=== PATIENT | female | born 1960 | race American Indian/Alaskan Native ===

== ENCOUNTER 2017-08-10 11:44 | Emergency (ER) | payer MEDICARE ==
--- NOTE | 2017-08-10 12:14 | Emergency Department Report ---
Chief Complaint: High BP Stated Complaint: HIGH BP Time Seen by Provider: 08/10/17 12:08 - HPI History of Present Illness: PT states she feels like she is having anxiety. PT states she went to the ENT today for ear wax removal and she was sent to the ED for htn. PT states she has been taking her medication. - ROS Review of Systems: - chest pain - sob - headache - Exam Vital Signs: Vital Signs 08/10/17 08/10/17 11:50 11:52 Temperature 98 F Pulse Rate 135 H Respiratory 20 20 Rate Blood Pressure 206/104 O2 Sat by Pulse 99 Oximetry Physical Exam: obese female gcs 15 no focal weakness tachycardic MSE screening note: Focused history and physical exam performed. Due to findings the following was ordered: ekg, labs, xr ED Disposition for MSE Condition: Stable
[2017-08-10 12:44] LABS: Hematocrit 36.7 % (30.3-42.9); Hemoglobin 11.3 gm/dl (10.1-14.3); Mean Corpuscular HGB Conc 31 % (30-34); Platelet Count 289 K/mm3 (140-440); Red Blood Count 5.98 M/mm3 (3.65-5.03); Red Cell Distribution Width 15.9 % (13.2-15.2); White Blood Count 9.1 K/mm3 (4.5-11.0)
[2017-08-10 12:45] LABS: Mean Corpuscular Hemoglobin 19 pg (28-32); Mean Corpuscular Volume 61 fl (79-97)
[2017-08-10 12:53] LABS: Alanine Aminotransferase 16 units/L (7-56); Albumin 3.9 g/dL (3.9-5); Alkaline Phosphatase 93 units/L (35-129); BUN/Creatinine Ratio 17.14; Blood Urea Nitrogen 12 mg/dL (7-17); Calcium 9.3 mg/dL (8.4-10.2); Carbon Dioxide 23 mmol/L (22-30); Glucose 117 mg/dL (65-100); Total Protein 7.7 g/dL (6.3-8.2)
[2017-08-10 12:54] LABS: Anion Gap 18 mmol/L; Chloride 101.8 mmol/L (98-107); Potassium 3.7 mmol/L (3.6-5.0); Sodium 139 mmol/L (137-145)
--- NOTE | 2017-08-10 13:25 | XRay Report ---
CHEST 2 VIEWS INDICATION: Chest pain. COMPARISON: 10/20/2011. FINDINGS: PA and lateral chest radiographs demonstrate normal cardiomediastinal silhouette. Clear lungs. Possible osteopenia. CONCLUSION: No acute disease in the chest. Thank you for the opportunity to participate in this patient's care.
[2017-08-10] MEDS ORDERED: ATIVAN PO ONE (14:07)
--- NOTE | 2017-08-10 14:52 | Emergency Department Report ---
ED General Adult HPI - General Chief complaint: High BP Stated complaint: HIGH BP Time Seen by Provider: 08/10/17 12:08 Source: patient Mode of arrival: Ambulatory Limitations: No Limitations - History of Present Illness Initial comments: 57 year old female with a past medical history of headaches, hypertension, and anxiety presents to the hospital with elevated blood pressure. Patient went to the ENT doctor's office to be evaluated for cerumen impaction. Blood pressure is found to be elevated therefore patients in the ER for evaluation. Patient takes amlodipine 5 mg and losartan 50 mg once a day. She does not consistently take them at the same time and sometimes takes one medication morning, 1 at night, or both in the morning about an hour apart. Patient took amlodipine 5 mg this morning prior to seeing the ENT doctor and took Prilosec to 45 minutes prior to my evaluation. Patient admits that she feels anxious typically when she goes to the doctor and is anxious currently. Patient became more anxious after seeing how high her blood pressure was in the ENT doctor office. She denies chest pain, shortness of breath, palpitations, calf tenderness, or edema. Severity scale (0 -10): 0 - Related Data Home Medications Medication Instructions Recorded Confirmed Last Taken Losartan [Cozaar] 50 mg PO QDAY 05/15/15 08/10/17 08/10/17 amLODIPine [Norvasc] 5 mg PO DAILY 08/10/17 08/10/17 08/10/17 Allergies Allergy/AdvReac Type Severity Reaction Status Date / Time No Known Allergies Allergy Verified 08/10/17 11:52 ED Review of Systems ROS: Stated complaint: HIGH BP Other details as noted in HPI Comment: All other systems reviewed and negative Other: Constitutional: No fevers chills Eyes: No eye pain visual changes ENT: as per hpi Neck: Denies pain Respiratory: Denies cough wheezing shortness of breath Cardiovascular: Denies chest pain, palpitations, syncope GI: Denies abdominal pain, nausea, vomiting, diarrhea : Denies dysuria, urinary frequency, or urgency Musculoskeletal: Denies back pain Skin: Denies rash, lesions, erythema Neurologic: Denies headache, numbness, weakness Psychiatric: Denies suicidal ideation, hallucinations ED Past Medical Hx - Past Medical History Hx Hypertension: Yes Hx Headaches / Migraines: Yes - Surgical History Additional Surgical History: Partial hysterectomy - Social History Smoking Status: Never Smoker Substance Use Type: None - Medications Home Medications: Home Medications Medication Instructions Recorded Confirmed Last Taken Type Losartan [Cozaar] 50 mg PO QDAY 05/15/15 08/10/17 08/10/17 History amLODIPine [Norvasc] 5 mg PO DAILY 08/10/17 08/10/17 08/10/17 History ED Physical Exam - General Limitations: No Limitations - Other Other exam information: General: No limitations, patient is alert in no acute distress Head exam: Atraumatic, normocephalic Eyes exam: Normal appearance ENT: Moist mucous membrane, normal oropharynx Neck exam: Normal inspection, full range of motion, no meningismus nontender Respiratory exam: Clear to auscultation bilateral, no wheezes, rales, crackles Cardiovascular: Tachycardic regular rhythm. Abdomen: Soft, nondistended, and nontender, with normal bowel sounds, no rebound, or guarding Extremity: Full range of motion normal inspection no deformity Back: Normal Inspection, full range of motion, no tenderness Neurologic: Alert, oriented x3, cranial nerves intact, no motor or sensory deficit Psychiatric: normal affect, normal mood Skin: Warm, dry, intact ED Course Vital Signs 08/10/17 08/10/17 08/10/17 11:50 11:52 12:55 Temperature 98 F Pulse Rate 135 H 116 H Respiratory 20 20 33 H Rate Blood Pressure 206/104 Blood Pressure [Right] O2 Sat by Pulse 99 99 Oximetry 08/10/17 08/10/17 08/10/17 12:56 13:01 13:15 Temperature Pulse Rate 115 H 100 H 102 H Respiratory 20 19 24 Rate Blood Pressure Blood Pressure 183/99 [Right] O2 Sat by Pulse 99 97 98 Oximetry 08/10/17 08/10/17 08/10/17 13:31 13:45 14:20 Temperature Pulse Rate 114 H 102 H Respiratory 14 13 Rate Blood Pressure 172/95 172/95 Blood Pressure [Right] O2 Sat by Pulse 100 99 98 Oximetry 08/10/17 08/10/17 08/10/17 14:30 14:45 15:00 Temperature Pulse Rate 101 H 98 H 94 H Respiratory 23 22 24 Rate Blood Pressure 163/95 165/88 168/93 Blood Pressure [Right] O2 Sat by Pulse 100 97 Oximetry 08/10/17 08/10/17 08/10/17 15:15 15:30 15:45 Temperature Pulse Rate 109 H 100 H 94 H Respiratory 24 27 H 26 H Rate Blood Pressure 139/100 174/97 167/94 Blood Pressure [Right] O2 Sat by Pulse 95 97 99 Oximetry 08/10/17 16:00 Temperature Pulse Rate 93 H Respiratory 19 Rate Blood Pressure 141/93 Blood Pressure [Right] O2 Sat by Pulse 98 Oximetry - Reevaluation(s) Reevaluation #1: 08/10/17 16:20 After the receiving Ativan 0.5 mg per his heart rate in the 80s at rest. Heart rate gradually increase his 's comment to the room. I believe the patient has whitecoat syndrome. Orthostatic vital signs were unremarkable. Blood pressure improved after taking the medication. ED Medical Decision Making - Lab Data Result diagrams: 08/10/17 12:19 08/10/17 12:19 Lab Results 08/10/17 08/10/17 Range/Units 12:19 12:19 WBC 9.1 (4.5-11.0) K/mm3 RBC 5.98 H (3.65-5.03) M/mm3 Hgb 11.3 (10.1-14.3) gm/dl Hct 36.7 (30.3-42.9) % MCV 61 L (79-97) fl MCH 19 L (28-32) pg MCHC 31 (30-34) % RDW 15.9 H (13.2-15.2) % Plt Count 289 (140-440) K/mm3 Lymph % (Auto) 21.5 (13.4-35.0) % [place] % (Auto) 7.0 (0.0-7.3) % Eos % (Auto) 1.0 (0.0-4.3) % Baso % (Auto) 1.0 (0.0-1.8) % Lymph # 2.0 (1.2-5.4) K/mm3 [place] # 0.6 (0.0-0.8) K/mm3 Eos # 0.1 (0.0-0.4) K/mm3 Baso # 0.1 (0.0-0.1) K/mm3 Seg Neutrophils % 69.5 (40.0-70.0) % Seg Neutrophils # 6.3 (1.8-7.7) K/mm3 Sodium 139 (137-145) mmol/L Potassium 3.7 (3.6-5.0) mmol/L Chloride 101.8 (98-107) mmol/L Carbon Dioxide 23 (22-30) mmol/L Anion Gap 18 mmol/L BUN 12 (7-17) mg/dL Creatinine 0.7 (0.7-1.2) mg/dL Estimated GFR > 60 ml/min BUN/Creatinine Ratio 17.14 % Glucose 117 H (65-100) mg/dL Calcium 9.3 (8.4-10.2) mg/dL Total Bilirubin 0.30 (0.1-1.2) mg/dL AST 16 (5-40) units/L ALT 16 (7-56) units/L Alkaline Phosphatase 93 (35-129) units/L Troponin T < 0.010 (0.00-0.029) ng/mL Total Protein 7.7 (6.3-8.2) g/dL Albumin 3.9 (3.9-5) g/dL Albumin/Globulin Ratio 1.0 % - EKG Data -: EKG Interpreted by Me (sinus 114 inferior anterolateral T inversions) - EKG Data When compared to previous EKG there are: no significant change (compared to ) - Medical Decision Making Differential dehydration Patient's blood pressure improves To take her home medication. Her tachycardia improved with Ativan 0.5 mg and when there is not any medical personnel in the room. This dictation is white count syndrome show hypertension. No signs of hypertensive emergency at this time and patient feels fine. - Differential Diagnosis hypertensive emergency/urgency, arrhythmia, anxiety, palpitations, anemia, Critical Care Time: No Critical care attestation.: If time is entered above; I have spent that time in minutes in the direct care of this critically ill patient, excluding procedure time. ED Disposition Clinical Impression: Uncontrolled hypertension, Anxiety Disposition: DC-01 TO HOME OR SELFCARE Is pt being admited?: No Does the pt Need Aspirin: No Condition: Stable Instructions: Hypertension (ED), Anxiety (ED) Additional Instructions: Continue your blood pressure medication as prescribed. Return is symptoms worsen. Follow up with your doctor for further management Referrals: PRIMARY CARE, [Primary Care Provider] - 3-5 Days Time of Disposition: 16:27
[2017-08-10 16:30] VITALS: BP 148/94
== END 2017-08-10 16:38 | disposition home or self-care (01) ==
LOC: ED 11:44
DX: I10 Essential (primary) hypertension (principal); F41.9 Anxiety disorder, unspecified; G43.909 Migraine, unspecified, not intractable, without status migrainosus
CPT/HCPCS: 36415; 71020; 80053; 84484; 85025; 93005; 93010